=== PATIENT | female | born 1965 | race African-American/Black ===

== ENCOUNTER 2017-02-11 00:46 | Emergency (ER) | payer MEDICAID ==
[~2017-02-11] VITALS: Ht 165.1 cm; Wt 51.0 kg
[~2017-02-11 00:46] MED LIST: ESTR1TAB95; LISI-652; METO100T9; OMEP20CA10; OXYB5TAB11; SIMV10TA6
[2017-02-11] MEDS ORDERED: MORPHINE SULFATE 4 MG/ML CPJ (NOT FOR IM USE) IV ONE (07:00)
[2017-02-11] MEDS ORDERED: SODIUM CHLORIDE 0.9% 1,000 ML IV ONE (07:00)
[2017-02-11] MEDS ORDERED: ONDANSETRON HCL 4MG/2ML VIAL IV ONE (07:00)
[2017-02-11 07:41] LABS: CLARITY URINE CLEAR (CLEAR); COLOR URINE YELLOW (YELLOW); GLUCOSE URINE NEGATIVE (NEGATIVE); KETONES URINE NEGATIVE (NEGATIVE); LEUKOCYTE ESTERASE URINE NEGATIVE (NEGATIVE); NITRITE URINE NEGATIVE (NEGATIVE); OCCULT BLOOD URINE NEGATIVE (NEGATIVE); PH URINE 5.5 (4.5-8.0); PROTEIN URINE NEGATIVE (NEGATIVE); SPECIFIC GRAVITY URINE 1.014 (1.005-1.030); UROBILINOGEN URINE 0.2 E.U./dL (0.2-1.0)
[2017-02-11 07:56] LABS: BASOPHILS % 0.5 % (0.0-2.0); CARBON DIOXIDE 26 mEq/L (21-32); CHLORIDE 107 mEq/L (98-107); EOSINOPHILS % 2.1 % (0.0-5.0); HEMATOCRIT. 41.3 % (36.0-48.0); HEMOGLOBIN. 13.5 g/dL (12.0-16.0); MEAN CORPUSCULAR HEMOGLOBIN 25.5 pg (28.0-32.0); MEAN CORPUSCULAR VOLUME 78.1 fL (81.0-99.0); MEAN PLATELET VOLUME 8.7 fl (7.4-10.4); MONOCYTES % 7.5 % (2.0-8.0); NEUTROPHILS % 52.9 % (40.0-76.0); PLATELET 282 x1000/uL (130-400); RED BLOOD CELL COUNT 5.29 mill/uL (4.2-5.4); RED CELL DISTRIBUTION WIDTH 14.8 % (11.6-14.6)
[2017-02-11] MEDS ORDERED: POTASSIUM CHLORIDE 20MEQ TABLET SR PO SCH (09:00)
[2017-02-11 10:08] VITALS: BP 132/86
== END 2017-02-11 10:10 | disposition home or self-care (01) ==
LOC: ER 07:10
DX: R10.9 Unspecified abdominal pain (principal); E87.6 Hypokalemia; M54.5 Low back pain; I10 Essential (primary) hypertension; E78.00 Pure hypercholesterolemia, unspecified; F12.10 Cannabis abuse, uncomplicated; Z88.1 Allergy status to other antibiotic agents; Z88.8 Allergy status to other drugs, medicaments and biological substances
CPT/HCPCS: 36415; 74176; 80053; 81003; 85025; 96361; 96374; 96375; 99285; J2270; J2405; J7030; Z7610

== ENCOUNTER 2017-08-07 22:18 | Inpatient (IN) | payer MEDICAID ==
[~2017-08-07] VITALS: Ht 157.5 cm; Wt 68.0 kg
[2017-08-08] MEDS ORDERED: ACETAMINOPHEN 325MG TABLET PO STA (00:57)
[2017-08-08] MEDS ORDERED: SODIUM CHLORIDE 0.9% 1,000 ML IV ONE (00:57)
[2017-08-08] MEDS ORDERED: ASPIRIN 81MG TABLET PO ONE (01:00)
[2017-08-08 01:25] LABS: BASOPHILS % 0.2 % (0.0-2.0); EOSINOPHILS % 2.4 % (0.0-5.0); HEMATOCRIT. 39.1 % (36.0-48.0); MEAN CORPUSCULAR HEMOGLOBIN 26.2 pg (28.0-32.0); MEAN CORPUSCULAR VOLUME 78.8 fL (81.0-99.0); MEAN PLATELET VOLUME 8.2 fl (7.4-10.4); MONOCYTES % 8.6 % (2.0-8.0); NEUTROPHILS % 59.8 % (40.0-76.0); PLATELET 267 x1000/uL (130-400); RED BLOOD CELL COUNT 4.96 mill/uL (4.2-5.4)
[2017-08-08 01:33] LABS: PROTHROMBIN TIME 10.2 sec (9.4-11.6)
[2017-08-08 01:34] LABS: HCG SCREEN NEGATIVE
[2017-08-08 01:41] LABS: CHLORIDE 110 mEq/L (98-107); ETHANOL BLOOD < 10 mg/dL
[2017-08-08 03:02] LABS: CLARITY URINE CLOUDY (CLEAR); COLOR URINE YELLOW (YELLOW); KETONES URINE NEGATIVE (NEGATIVE); LEUKOCYTE ESTERASE URINE NEGATIVE (NEGATIVE); NITRITE URINE NEGATIVE (NEGATIVE); OCCULT BLOOD URINE NEGATIVE (NEGATIVE); PH URINE 7.5 (4.5-8.0); PROTEIN URINE NEGATIVE (NEGATIVE); SPECIFIC GRAVITY URINE 1.013 (1.005-1.030); UROBILINOGEN URINE 0.2 E.U./dL (0.2-1.0)
[2017-08-08 03:45] LABS: *AMPHETAMINES SCREEN URINE NEGATIVE (NEGATIVE); *BARBITURATES SCREEN URINE NEGATIVE (NEGATIVE); *BENZODIAZEPINES SCREEN URINE NEGATIVE (NEGATIVE); *COCAINE SCREEN URINE NEGATIVE (NEGATIVE); CANNABINOID URINE SCREEN PRESUMTIVE POSITIVE (NEGATIVE); METHADONE URINE SCREEN NEGATIVE (NEGATIVE); OPIATES URINE SCREEN NEGATIVE (NEGATIVE); PHENCYCLIDINE URINE SCREEN NEGATIVE (NEGATIVE)
[2017-08-08] MEDS ORDERED: LISINOPRIL 20MG TABLET PO SCH (10:00)
[2017-08-08] MEDS ORDERED: ACETAMINOPHEN 325MG TABLET PO PRN (10:00)
[2017-08-08] MEDS ORDERED: CLONIDINE 0.1MG TABLET PO PRN (10:00)
[2017-08-08 10:03] VITALS: BP_SYST 134; BP_SYST 158; BP_SYST 162; BP_DIAS 84; BP_DIAS 86; BP_DIAS 98
[2017-08-08 10:09] VITALS: BP 134/84
[2017-08-08] MEDS ORDERED: PANT40TA4 PO (11:57)
[2017-08-08] MEDS ORDERED: DICL50TA9 PO (11:57)
[2017-08-08] MEDS ORDERED: GATI3.5D2 OP (11:57)
[2017-08-08] MEDS ORDERED: ASOU BOTHEYE (11:57)
[2017-08-08] MEDS ORDERED: METO25TA3 PO (11:57)
[2017-08-08 12:25] VITALS: BP 162/94
[2017-08-08] MEDS: PANTOPRAZOLE 40MG DR TABLET PO SCH (12:48)
[2017-08-08] MEDS: TOPIRAMATE 25MG TABLET PO SCH ×2 (12:48→21:39)
[2017-08-08] MEDS ORDERED: PNEUMOCOCCAL 23-VAL P-SAC VAC 0.5 ML IM ONE (14:45)
[2017-08-08] MEDS: PREDNISOLONE ACETATE 1% OPHTH DROPS 1ML RIGHTEYE SCH ×2 (14:50→17:13)
[2017-08-08 16:28] VITALS: BP 150/102
[2017-08-08] MEDS: ATROPINE SULFATE 1% OPHTH 2ML RIGHTEYE SCH (17:13)
[2017-08-08] MEDS: HYDROCODONE/ACETAMINOPHEN 5/325MG TABLET PO PRN (18:23)
[2017-08-08 20:19] VITALS: BP_SYST 125; BP_SYST 126; BP_DIAS 60; BP_DIAS 63
[2017-08-08] MEDS ORDERED: TOPIRAMATE 25MG TABLET PO SCH (21:00)
[2017-08-08] MEDS: ATORVASTATIN CALCIUM 10MG TABLET PO SCH (21:38)
[2017-08-08] MEDS: DICLOFENAC SODIUM 50MG EC TABLET PO SCH (21:39)
[2017-08-09] VITALS (7 sets, daily range): BP systolic 122–146; BP diastolic 60–86
[2017-08-09] MEDS: PREDNISOLONE ACETATE 1% OPHTH DROPS 1ML RIGHTEYE SCH ×4 (00:08→17:16)
[2017-08-09] MEDS ORDERED: DEXTROSE 50% WATER 50ML SYRINGE IV PRN (00:15)
[2017-08-09] MEDS: PANTOPRAZOLE 40MG DR TABLET PO SCH ×2 (07:02→08:39)
[2017-08-09] MEDS ORDERED: BLOOD SUGAR DIAGNOSTIC STRIP TEST SCH (07:20)
[2017-08-09] MEDS ORDERED: PANTOPRAZOLE 40MG DR TABLET PO SCH (07:20)
[2017-08-09] MEDS ORDERED: INSULIN LISPRO 100 UNITS/ML SUBCUT SCH (07:50)
[2017-08-09] MEDS: DICLOFENAC SODIUM 50MG EC TABLET PO SCH ×2 (08:38→21:15)
[2017-08-09] MEDS: TOPIRAMATE 25MG TABLET PO SCH ×2 (08:39→21:16)
[2017-08-09] MEDS: LISINOPRIL 40MG TABLET PO SCH (08:39)
[2017-08-09] MEDS: ATROPINE SULFATE 1% OPHTH 2ML RIGHTEYE SCH ×2 (08:40→17:15)
[2017-08-09] MEDS: HYDROCODONE/ACETAMINOPHEN 5/325MG TABLET PO PRN (10:02)
[2017-08-09] MEDS ORDERED: MECLIZINE 25MG TABLET PO PRN (12:00)
[2017-08-09] MEDS: ATORVASTATIN CALCIUM 10MG TABLET PO SCH (21:14)
[2017-08-09] MEDS: AMLODIPINE 5MG TABLET PO SCH (21:15)
[2017-08-10] MEDS: PREDNISOLONE ACETATE 1% OPHTH DROPS 1ML RIGHTEYE SCH ×3 (01:21→11:59)
[2017-08-10 04:48] VITALS: BP_SYST 128; BP_SYST 129; BP_SYST 150; BP_DIAS 73; BP_DIAS 77; BP_DIAS 92
[2017-08-10 07:05] LABS: HEMATOCRIT 41.8 % (36.0-48.0); HEMOGLOBIN 13.7 g/dL (12.0-16.0); MEAN CORPUSCULAR HEMOGLOBIN 26.6 pg (28.0-32.0); MEAN CORPUSCULAR VOLUME 81.1 fL (81.0-99.0); RED BLOOD CELL COUNT 5.15 mill/uL (4.2-5.4)
[2017-08-10 07:28] LABS: CHLORIDE 111 mEq/L (98-107)
[2017-08-10 08:24] LABS: PLATELET 243 x1000/uL (130-400)
[2017-08-10] MEDS: ATROPINE SULFATE 1% OPHTH 2ML RIGHTEYE SCH (08:54)
[2017-08-10] MEDS: AMLODIPINE 5MG TABLET PO SCH (08:55)
[2017-08-10] MEDS: TOPIRAMATE 25MG TABLET PO SCH (08:55)
[2017-08-10] MEDS: DICLOFENAC SODIUM 50MG EC TABLET PO SCH (08:56)
[2017-08-10] MEDS: LISINOPRIL 40MG TABLET PO SCH (08:56)
[2017-08-10 14:41] VITALS: BP 112/76
== END 2017-08-10 15:35 | disposition home or self-care (01) | DRG 48 ==
LOC: ER 22:18 → 6WST 08-08 03:08 → ENRESERV 08-08 08:24
PROVIDERS: ADMIT Internal Medicine; ATTEND Internal Medicine
DX: G90.8 Other disorders of autonomic nervous system (principal); E87.8 Other disorders of electrolyte and fluid balance, not elsewhere classified; E83.51 Hypocalcemia; I10 Essential (primary) hypertension; G40.909 Epilepsy, unspecified, not intractable, without status epilepticus; E78.5 Hyperlipidemia, unspecified; H54.7 Unspecified visual loss; E78.00 Pure hypercholesterolemia, unspecified; H91.90 Unspecified hearing loss, unspecified ear; W18.30XA Fall on same level, unspecified, initial encounter; Z79.899 Other long term (current) drug therapy; Z88.6 Allergy status to analgesic agent
CPT/HCPCS: 36415; 70551; 71045; 80048; 80305; 83605; 83880; 84484; 84703; 85027; 90732; 93005; 93306; 93880; 96360; 96361; 97162; 99285; G0482; J7030

== ENCOUNTER 2017-10-27 22:16 | Emergency (ER) | payer MEDICAID ==
[~2017-10-27] VITALS: Ht 157.5 cm; Wt 67.9 kg
[~2017-10-27 22:16] MED LIST changes: +ASOU BOTHEYE; +DICL50TA9 PO; -ESTR1TAB95; +GATI3.5D2 OP; +METO25TA3 PO; +PANT40TA4 PO
[2017-10-28] MEDS ORDERED: ONDANSETRON HCL 4MG/2ML VIAL IV STA (00:23)
[2017-10-28] MEDS ORDERED: MORPHINE SULFATE 4 MG/ML CPJ (NOT FOR IM USE) IV STA (00:23)
[2017-10-28 01:34] LABS: BASOPHILS % 0.4 % (0.0-2.0); CHLORIDE 108 mEq/L (98-107); EOSINOPHILS % 2.5 % (0.0-5.0); HEMATOCRIT. 40.1 % (36.0-48.0); HEMOGLOBIN. 13.2 g/dL (12.0-16.0); LYMPHOCYTES % 37.6 % (20.0-50.0); MEAN CORPUSCULAR HEMOGLOBIN 26.3 pg (28.0-32.0); MEAN CORPUSCULAR VOLUME 79.9 fL (81.0-99.0); MEAN PLATELET VOLUME 8.2 fl (7.4-10.4); MONOCYTES % 7.7 % (2.0-8.0); NEUTROPHILS % 51.8 % (40.0-76.0); PLATELET 274 x1000/uL (130-400); RED BLOOD CELL COUNT 5.01 mill/uL (4.2-5.4); RED CELL DISTRIBUTION WIDTH 13.7 % (11.6-14.6)
[2017-10-28 02:00] VITALS: BP 129/63
== END 2017-10-28 05:15 | disposition home or self-care (01) ==
LOC: ER 22:16
DX: I10 Essential (primary) hypertension (principal); R51 Headache; M79.1 Myalgia; E78.00 Pure hypercholesterolemia, unspecified; H54.3 Unqualified visual loss, both eyes; F12.10 Cannabis abuse, uncomplicated; Z97.0 Presence of artificial eye; Z90.49 Acquired absence of other specified parts of digestive tract; Z98.890 Other specified postprocedural states; Z88.8 Allergy status to other drugs, medicaments and biological substances
CPT/HCPCS: 36415; 70450; 71045; 80053; 84484; 85025; 93005; 96374; 96375; 99285; J2270; J2405; Z7610

== ENCOUNTER 2018-07-27 08:58 | Emergency (ER) | payer MEDICAID ==
[~2018-07-27] VITALS: Ht 157.5 cm; Wt 64.0 kg
[2018-07-27] MEDS ORDERED: ONDANSETRON HCL 4MG/2ML INJ IV STA (09:41)
[2018-07-27] MEDS ORDERED: SODIUM CHLORIDE 0.9% 1,000 ML IV ONE (09:41)
[2018-07-27 10:50] LABS: BASOPHILS % 0.3 % (0.0-2.0); EOSINOPHILS % 3.3 % (0.0-5.0); HEMATOCRIT. 44.4 % (36.0-48.0); HEMOGLOBIN. 14.7 g/dL (12.0-16.0); MEAN CORPUSCULAR HEMOGLOBIN 26.8 pg (28.0-32.0); MEAN CORPUSCULAR VOLUME 81.2 fL (81.0-99.0); MEAN PLATELET VOLUME 9.7 fl (7.4-10.4); NEUTROPHILS % 47.4 % (40.0-76.0); PLATELET 264 x1000/uL (130-400); RED BLOOD CELL COUNT 5.47 mill/uL (4.2-5.4); RED CELL DISTRIBUTION WIDTH 14.3 % (11.6-14.6)
[2018-07-27 10:52] LABS: CLARITY URINE CLEAR (CLEAR); COLOR URINE YELLOW (YELLOW); KETONES URINE NEGATIVE (NEGATIVE); LEUKOCYTE ESTERASE URINE NEGATIVE (NEGATIVE); NITRITE URINE NEGATIVE (NEGATIVE); OCCULT BLOOD URINE NEGATIVE (NEGATIVE); PROTEIN URINE NEGATIVE (NEGATIVE); SPECIFIC GRAVITY URINE 1.002 (1.005-1.030); UROBILINOGEN URINE 0.2 E.U./dL (0.2-1.0)
[2018-07-27 10:55] LABS: CHLORIDE 108 mEq/L (98-107)
[2018-07-27 11:01] LABS: PROTHROMBIN TIME 9.8 sec (9.1-11.1)
[2018-07-27 12:21] VITALS: BP 126/80
== END 2018-07-27 12:25 | disposition home or self-care (01) ==
LOC: ER 09:11
DX: R53.1 Weakness (principal); I10 Essential (primary) hypertension; E11.9 Type 2 diabetes mellitus without complications
CPT/HCPCS: 36415; 80053; 81003; 82962; 85025; 85610; 99283; J2405; J7030

== ENCOUNTER 2019-02-05 16:35 | Emergency (ER) | payer MEDICAID ==
[~2019-02-05] VITALS: Ht 157.5 cm; Wt 62.2 kg
[~2019-02-05 16:35] MED LIST changes: -OMEP20CA10; +OMEP20CA5
[2019-02-05 17:19] VITALS: BP 120/84
== END 2019-02-05 19:19 | disposition home or self-care (01) ==
LOC: ER 17:05
DX: H60.92 Unspecified otitis externa, left ear (principal); E78.00 Pure hypercholesterolemia, unspecified; I10 Essential (primary) hypertension; F12.10 Cannabis abuse, uncomplicated; E78.5 Hyperlipidemia, unspecified; Z98.890 Other specified postprocedural states; Z90.49 Acquired absence of other specified parts of digestive tract; Z79.899 Other long term (current) drug therapy; Z88.1 Allergy status to other antibiotic agents
CPT/HCPCS: 99283

== ENCOUNTER 2019-08-05 02:20 | Inpatient (IN) | payer MEDICAID ==
[~2019-08-05] VITALS: Ht 157.5 cm; Wt 64.9 kg
[~2019-08-05 02:20] MED LIST changes: +OMEP20CA14; -OMEP20CA5; -OXYB5TAB11; +OXYB5TAB17; -SIMV10TA6; +SIMV10TA97
[2019-08-05] MEDS ORDERED: ONDANSETRON 4MG ODT PO ONE (05:30)
[2019-08-05 05:40] LABS: BASOPHILS % 0.4 % (0.0-2.0); EOSINOPHILS % 0.2 % (0.0-5.0); HEMATOCRIT. 45.4 % (36.0-48.0); HEMOGLOBIN. 15.6 g/dL (12.0-16.0); LYMPHOCYTES % 18.3 % (20.0-50.0); MEAN CORPUSCULAR HEMOGLOBIN 27.7 pg (28.0-32.0); MEAN CORPUSCULAR VOLUME 80.7 fL (81.0-99.0); MEAN PLATELET VOLUME 8.5 fl (7.4-10.4); NEUTROPHILS % 76.1 % (40.0-76.0); PLATELET 289 x1000/uL (130-400); RED BLOOD CELL COUNT 5.63 mill/uL (4.2-5.4); RED CELL DISTRIBUTION WIDTH 13.6 % (11.6-14.6)
[2019-08-05 05:58] LABS: CHLORIDE 108 mEq/L (98-107)
[2019-08-05] MEDS ORDERED: SODIUM CHLORIDE 0.9% 1,000 ML IV ONE (06:25)
[2019-08-05] MEDS ORDERED: FAMOTIDINE 20MG/2ML VIAL IV STA (06:25)
[2019-08-05] MEDS ORDERED: MORPHINE SULFATE 4 MG/ML CPJ (NOT FOR IM USE) IV ONE (06:30)
[2019-08-05] MEDS ORDERED: POTASSIUM CHLORIDE 20MEQ TABLET SR PO ONE (08:15)
[2019-08-05 09:34] LABS: ETHANOL BLOOD < 10 mg/dL
[2019-08-05 09:35] LABS: AMYLASE 303 IU/L (25-115)
[2019-08-05] MEDS: SODIUM CHLORIDE 0.45% 1,000 ML IV SCH ×2 (12:08→19:18)
[2019-08-05] MEDS ORDERED: MAGNESIUM/ALUMINUM HYDROXIDE/SIMETHICONE 30ML UDC PO PRN (12:15)
[2019-08-05] MEDS ORDERED: DIPHENHYDRAMINE 50MG/ML VIAL IV PRN (12:15)
[2019-08-05] MEDS ORDERED: ACETAMINOPHEN 650MG SUPP PR PRN (12:15)
[2019-08-05] MEDS ORDERED: NA PHOS,M-B/NA PHOS,DI-BA ENEMA 118ML PR PRN (12:15)
[2019-08-05] MEDS ORDERED: ACETAMINOPHEN 650MG/20.3ML UDC GT PRN (12:15)
[2019-08-05 14:00] VITALS: BP 158/89
[2019-08-05 14:50] VITALS: BP 148/79
[2019-08-05 16:00] VITALS: BP 161/88
[2019-08-05] MEDS: ONDANSETRON HCL 4MG/2ML INJ IV PRN (16:15)
[2019-08-05] MEDS: MORPHINE SULFATE 2 MG/ML CPJ (NOT FOR IM USE) IV PRN ×2 (16:16→21:20)
[2019-08-05] MEDS: ACETAMINOPHEN 325MG TABLET PO PRN (16:17)
[2019-08-05 20:00] VITALS: BP 129/65
[2019-08-06] VITALS: BP 167/96
[2019-08-06] MEDS: ONDANSETRON HCL 4MG/2ML INJ IV PRN ×3 (00:22→20:23)
[2019-08-06 04:00] VITALS: BP 153/90
[2019-08-06 06:59] LABS: BASOPHILS % 0.3 % (0.0-2.0); EOSINOPHILS % 0.1 % (0.0-5.0); HEMATOCRIT. 43.6 % (36.0-48.0); HEMOGLOBIN. 14.5 g/dL (12.0-16.0); LYMPHOCYTES % 14.9 % (20.0-50.0); MEAN CORPUSCULAR VOLUME 81.3 fL (81.0-99.0); MEAN PLATELET VOLUME 8.9 fl (7.4-10.4); NEUTROPHILS % 77.7 % (40.0-76.0); PLATELET 256 x1000/uL (130-400); RED BLOOD CELL COUNT 5.36 mill/uL (4.2-5.4); RED CELL DISTRIBUTION WIDTH 13.7 % (11.6-14.6)
[2019-08-06 08:00] VITALS: BP 158/76
[2019-08-06 08:09] LABS: CHLORIDE 108 mEq/L (98-107)
[2019-08-06 08:18] LABS: LDL CHOLESTEROL 81 mg/dL (5-100)
[2019-08-06 08:20] LABS: HDL CHOLESTEROL 43 mg/dL (40-59)
[2019-08-06] MEDS: PANTOPRAZOLE SODIUM 40 MG/VIAL IV SCH (09:00)
[2019-08-06 12:00] VITALS: BP_SYST 108; BP_SYST 169; BP_DIAS 74; BP_DIAS 91
[2019-08-06] MEDS: ACETAMINOPHEN 325MG TABLET PO PRN (12:26)
[2019-08-06] MEDS: CLONIDINE 0.1MG TABLET PO PRN (12:26)
[2019-08-06] MEDS: MORPHINE SULFATE 2 MG/ML CPJ (NOT FOR IM USE) IV PRN ×3 (12:32→22:22)
[2019-08-06] MEDS: PREDNISOLONE ACETATE 1% OPHTH DROPS 5ML BOTHEYE SCH ×2 (13:47→17:03)
[2019-08-06] MEDS: ATROPINE SULFATE 1% OPHTH 2ML BOTHEYE SCH ×2 (13:47→21:34)
[2019-08-06 20:00] VITALS: BP 146/77
[2019-08-06] MEDS: SODIUM CHLORIDE 0.45% 1,000 ML IV SCH (21:33)
[2019-08-07] VITALS: BP 147/92
[2019-08-07] MEDS: PREDNISOLONE ACETATE 1% OPHTH DROPS 5ML BOTHEYE SCH ×4 (00:06→18:27)
[2019-08-07] MEDS: MORPHINE SULFATE 2 MG/ML CPJ (NOT FOR IM USE) IV PRN ×2 (03:47→22:22)
[2019-08-07] MEDS: SODIUM CHLORIDE 0.45% 1,000 ML IV SCH ×3 (04:08→18:27)
[2019-08-07] MEDS: ATROPINE SULFATE 1% OPHTH 2ML BOTHEYE SCH ×3 (05:31→21:43)
[2019-08-07 08:00] VITALS: BP 141/76
[2019-08-07 08:16] LABS: AMYLASE 210 IU/L (25-115)
[2019-08-07] MEDS: PANTOPRAZOLE SODIUM 40 MG/VIAL IV SCH (09:14)
[2019-08-07 12:00] VITALS: BP 161/75
[2019-08-07] MEDS ORDERED: BISACODYL 10MG SUPP PR PRN (12:30)
[2019-08-07] MEDS ORDERED: HYDROCODONE/ACETAMINOPHEN 5/325MG TABLET PO PRN (12:30)
[2019-08-07] MEDS ORDERED: LACTULOSE 20G/30ML UDC PO NR (12:30)
[2019-08-07] MEDS: ONDANSETRON HCL 4MG/2ML INJ IV PRN (13:55)
[2019-08-07 16:00] VITALS: BP 132/63
[2019-08-07] MEDS ORDERED: MAGNESIUM HYDROXIDE 400MG/5ML 30ML UDC PO PRN (17:15)
[2019-08-07] MEDS: SUCRALFATE 1 G/10 ML UDC PO SCH ×2 (18:27→21:43)
[2019-08-07 20:00] VITALS: BP 163/97
[2019-08-07] MEDS: CLONIDINE 0.1MG TABLET PO PRN (22:22)
[2019-08-07 23:52] LABS: CHLORIDE 108 mEq/L (98-107)
[2019-08-08] VITALS: BP 128/87
[2019-08-08] MEDS: SODIUM CHLORIDE 0.45% 1,000 ML IV SCH (01:47)
[2019-08-08 04:00] VITALS: BP 148/82
[2019-08-08] MEDS: ATROPINE SULFATE 1% OPHTH 2ML BOTHEYE SCH ×3 (05:31→20:05)
[2019-08-08] MEDS: SUCRALFATE 1 G/10 ML UDC PO SCH ×4 (07:51→20:05)
[2019-08-08 09:33] LABS: AMYLASE 328 IU/L (25-115)
[2019-08-08] MEDS: PANTOPRAZOLE SODIUM 40 MG/VIAL IV SCH (10:01)
[2019-08-08] MEDS: PREDNISOLONE ACETATE 1% OPHTH DROPS 5ML BOTHEYE SCH ×2 (12:00→18:45)
[2019-08-08 20:00] VITALS: BP 136/81
[2019-08-08] MEDS ORDERED: POTASSIUM CHLORIDE 20MEQ TABLET SR PO NR (21:00)
[2019-08-08] MEDS ORDERED: LACTULOSE 20G/30ML UDC PO NR (21:00)
[2019-08-08] MEDS ORDERED: MAGNESIUM CITRATE 300ML SOLUTION PO NR (21:00)
[2019-08-09] VITALS: BP 138/84
[2019-08-09] MEDS: PREDNISOLONE ACETATE 1% OPHTH DROPS 5ML BOTHEYE SCH ×3 (03:39→12:00)
[2019-08-09] MEDS: SODIUM CHLORIDE 0.45% 1,000 ML IV SCH (03:58)
[2019-08-09 04:00] VITALS: BP 138/80
[2019-08-09] MEDS ORDERED: LACTULOSE 20G/30ML UDC PO NR (05:00)
[2019-08-09] MEDS ORDERED: POTASSIUM CHLORIDE 20MEQ TABLET SR PO NR (05:00)
[2019-08-09] MEDS: SUCRALFATE 1 G/10 ML UDC PO SCH ×2 (05:49→13:12)
[2019-08-09] MEDS: ATROPINE SULFATE 1% OPHTH 2ML BOTHEYE SCH ×2 (05:51→13:12)
[2019-08-09 07:55] LABS: CHLORIDE 106 mEq/L (98-107)
[2019-08-09 08:00] VITALS: BP 169/83
[2019-08-09] MEDS: ONDANSETRON HCL 4MG/2ML INJ IV PRN (09:34)
[2019-08-09] MEDS: PANTOPRAZOLE SODIUM 40 MG/VIAL IV SCH (09:40)
[2019-08-09 10:24] LABS: HEMATOCRIT 40.1 % (36.0-48.0); HEMOGLOBIN 13.4 g/dL (12.0-16.0); MEAN CORPUSCULAR HEMOGLOBIN 26.7 pg (28.0-32.0); MEAN CORPUSCULAR VOLUME 79.6 fL (81.0-99.0); RED BLOOD CELL COUNT 5.03 mill/uL (4.2-5.4); RED CELL DISTRIBUTION WIDTH 13.2 % (11.6-14.6)
[2019-08-09 10:26] LABS: PLATELET 267 x1000/uL (130-400)
[2019-08-09] MEDS: CLONIDINE 0.1MG TABLET PO PRN (10:40)
[2019-08-09 12:00] VITALS: BP 143/80
[2019-08-09 16:00] VITALS: BP 131/78
[2019-08-09 16:41] VITALS: BP 131/78
== END 2019-08-09 19:16 | disposition home or self-care (01) | DRG 282 ==
LOC: ER 02:20 → 6EST 08:21 → EDBEDREQ 08:31 → ENRESERV 13:15 → 6EST 14:41
PROVIDERS: ADMIT Family Medicine; ATTEND Family Medicine
DX: K85.20 Alcohol induced acute pancreatitis without necrosis or infection (principal); R65.11 Systemic inflammatory response syndrome (SIRS) of non-infectious origin with acute organ dysfunction; E78.00 Pure hypercholesterolemia, unspecified; E87.6 Hypokalemia; I10 Essential (primary) hypertension; K21.9 Gastro-esophageal reflux disease without esophagitis; E78.5 Hyperlipidemia, unspecified; F17.210 Nicotine dependence, cigarettes, uncomplicated; G89.29 Other chronic pain; K59.00 Constipation, unspecified; Z90.49 Acquired absence of other specified parts of digestive tract; Z88.8 Allergy status to other drugs, medicaments and biological substances; Z79.2 Long term (current) use of antibiotics; Z79.899 Other long term (current) drug therapy
CPT/HCPCS: 36415; 71045; 71110; 74176; 76705; 80048; 80053; 80061; 80320; 82150; 84450; 84460; 84484; 85025; 85027; 93005; 96374; 99285; C9113; J1200; J2270; J2405; J3490; J7030; Q0162; G0480